=== PATIENT | female | born 1990 | race Caucasian/White ===

== ENCOUNTER 2020-10-06 15:58 | Emergency (ER) | payer OTHER, SELFPAY ==
--- NOTE | 2020-10-06 17:21 | ED.GENADULT ---
HPI - General Adult General Chief complaint: General Medical Stated complaint: sore throat Source: patient Mode of arrival: ambulatory Limitations: no limitations History of Present Illness HPI narrative: 29-year-old female presents with 2 weeks of worsening sore throat. States that she has been using tea, honey, and lidn-eqk-tlynoap remedies and none have been effective. She does not report any ear pain, measured fevers or chills but does report to be tired. Onset (ago): week(s) (2) Severity: moderate Severity scale (1-10): 6 Quality: burning, aching and constant Pain Consistency: constant Relieving factors: none Exacerbating factors: eating Associated symptoms: malaise Treatments prior to arrival: NSAID Related Data Previous Rx's Medication Instructions Recorded penicillin V potassium 500 mg PO TID 10 Days #30 tab 10/06/20 Allergies Allergy/AdvReac Type Severity Reaction Status Date / Time codeine Allergy Unknown Verified 10/06/20 17:29 Review of Systems Review of Systems: Constitutional: No Fever, No Chills ENT/Mouth: No Ear Pain, No Hoarseness, positive sore throat, positive swollen tonsils Eyes: No Eye Pain, No Swelling, No Redness, No Foreign Body Cardiovascular: No Chest Pain, No SOB Respiratory: No Cough, No Dyspnea Gastrointestinal: No Nausea, No Vomiting, No Diarrhea, No abdominal Pain Genitourinary: No Dysuria, No Hematuria Musculoskeletal: positive joint pain, No Myalgias, No Joint Swelling Skin: No Skin lacerations, No rash Neuro: No Weakness, No Numbness, No Paresthesias, No Loss of Consciousness, No Dizziness, No Headache Psych: No Anxiety/Panic, No Depression Heme/Lymph: no easy bruising, no Lymphadenopathy Endocrine: No Polyuria, No Polydipsia Yes all other systems are reviewed and are negative [facility] Past Medical History Attestation statement: The following information was validated with the patient. Source: old records reviewed Medical History Asthma PTSD (post-traumatic stress disorder) Social History Social History Smoked in Last 30 Days: No Use of substances other than those prescribed or required for medical reasons: No Any prior treatment program specific to substance use: No Advance Directives: No Advance Directives Information Provided: No Physical Exam Vital Signs: Vital Signs: Last Vital Signs Temp 99.2 F 10/06/20 17:23 Pulse 93 10/06/20 17:23 Resp 16 10/06/20 17:23 BP 137/77 10/06/20 17:23 Pulse Ox 99 10/06/20 17:23 Body Mass Index 28.6 Appearance: Alert. Oriented X3. Mild distress. Eyes: Pupils equal, round and reactive to light. ENT: Pharynx erythematous with exudates, no cervical lymphadenopathy noted Neck: Normal inspection. Neck supple. CVS: Normal heart rate and rhythm. Pulses normal. Respiratory: No respiratory distress. Breath sounds normal. Abdomen: Soft and nontender. Skin: Skin warm and dry. Normal skin color. Normal skin turgor. Extremities: No lower extremity edema. Neuro: No motor deficit. No sensory deficit. Course Course Course Narrative: 29-year-old female past medical history asthma presents with 2 sore been on by [id number] remedies. Plan of care is to test for strep and COVID. Pharynx erythematous, tonsillar exudates noted bilaterally. Plan of care is to treat with Augmentin. Patient will be discharged home, patient verbalized understanding of and agrees to plan of care. At 7:57 p.m. call out to patient to give negative COVID results. Medical Decision Making Differential Diagnosis Differential Diagnosis: Strep, COVID, viral illness, influenza Medical Records Medical records reviewed: Yes I reviewed the patient's medical records. Lab Data Lab results reviewed: Yes I reviewed the patient's lab results. Labs: Lab Results 10/06/20 Range/Units 17:39 Coronavirus (PCR) NEGATIVE (Negative) Influenza Type A (PCR) NEGATIVE (Negative) Influenza Type B (PCR) NEGATIVE (Negative) RSV RNA Qual (PCR) NEGATIVE (Negative) Discharge Plan Discharge Clinical Impression: Strep pharyngitis, COVID-19 Patient Disposition: Home, Self-Care Instructions: Pharyngitis (ED), COVID-19 (Coronavirus Disease 2019) (ED) Additional Instructions: You were evaluated for sore throat. Your findings are consistent with strep pharyngitis. Please take your antibiotics as directed. Complete the entire course. Please use Tylenol and Motrin as needed for pain management. You were evaluated for symptoms consistent with COVID-19. Please maintain social isolation per State and Federal guidelines. Is your responsibility to maintain these guidelines. Your test results are pending. We will call you with the results. You must treat yourself as if you are positive until your test results come back. Thank you for choosing this emergency department for evaluation. Please follow-up with primary care physician as needed. Return to the emergency department for any new, concerning, or worsening symptoms. Prescriptions: New penicillin V potassium 500 mg tablet 500 mg PO TID 10 Days Qty: 30 RF: 0 Interventions: ED Discharge Assessment Last Done: 10/06/20 18:15 Discharge Date/Time: 10/06/20 18:19
[2020-10-06 17:23] VITALS: BP 137/77; PULSE 93; RESP 16; TEMP 37.3; O2SAT 99; BMI 28.6
[2020-10-06] MEDS: Penicillin V Potassium 250 MG TABLET 500 MG PO (18:00)
[2020-10-06 19:15] LABS: Influenza A PCR NEGATIVE (Negative); Influenza B PCR NEGATIVE (Negative); Resp Syncy Virus RNA Qual PCR NEGATIVE (Negative); SARS COV2 PCR INHOUSE NEGATIVE (Negative)
== END 2020-10-06 18:19 | disposition home or self-care (01) ==
PROVIDERS: Nurse Practitioner Family; Emergency Provider Emergency Medicine Emergency Medical Services
DX: U07.1 COVID-19 (principal); J02.0 Streptococcal pharyngitis; Z79.899 Other long term (current) drug therapy
CPT/HCPCS: 0241U; 36415; 87071; 87147; 87880; 99284

== ENCOUNTER 2020-10-22 17:33 | Emergency (ER) | payer OTHER, SELFPAY ==
[2020-10-22 17:40] VITALS: PULSE 90; RESP 18; TEMP 37.2; O2SAT 100; BMI 28.3
--- NOTE | 2020-10-22 17:51 | ED_ITS ---
HPI - URI/Sore Throat General Chief Complaint: Upper Respiratory Symptoms Stated Complaint: Sore throat Time Seen by Provider: 10/22/20 17:51 Source: patient Mode of arrival: ambulatory Limitations: no limitations History of Present Illness HPI Narrative: Otherwise healthy 29-year-old female who denies significant past medical or surgical history not currently taking medications states she was initially seen here on October 06 for sore throat at that time she had strep test as well as COVID test and started on penicillin states she felt better finished course of 10 day penicillin 6 days ago and 2 days ago she started have sore throat again. She otherwise denies any upper respiratory symptoms no cough or shortness of breath. No dysphagia. She states she had the test however she does not know with the results or of her strep test. Onset (ago): day(s) Consistency: constant Severity: moderate Able to tolerate fluids by mouth: Yes Exacerbating factors: nothing Associated symptoms: denies other symptoms Treatments prior to arrival: none Related Data Previous Rx's Medication Instructions Recorded penicillin V potassium 500 mg PO TID 10 Days #30 tab 10/06/20 amoxicillin-pot clavulanate 1 tab PO Q12H 10 Days #20 tab 10/22/20 [Augmentin] azithromycin [Zithromax Z-Brian] 250 mg PO DAILY 5 Days #6 tab 10/22/20 Allergies Allergy/AdvReac Type Severity Reaction Status Date / Time codeine Allergy Unknown Verified 10/06/20 17:29 Review of Systems Review of Systems: Constitutional: No Weight loss, No Fever, No Chills, No Night Sweats, No Fatigue, No Malaise ENT/Mouth: No Hearing loss, No Ear Pain, No Nasal Congestion, No Sinus Pain, No Hoarseness, + sore throat, No Rhinorrhea, No Swallowing Difficulty Eyes: No Eye Pain, No Swelling, No Redness, No Foreign Body, No Discharge, No Vision Changes Cardiovascular: No Chest Pain, No SOB, No Dyspnea on Exertion, No Orthopnea, No Edema, No Palpitations Respiratory: No Cough, No Sputum, No Wheezing, No Smoke Exposure, No Dyspnea Gastrointestinal: No Nausea, No Vomiting, No Diarrhea, No Constipation, No abdominal Pain, No Hematochezia, No Melena Genitourinary: No Dysuria, No Urinary Frequency, No Hematuria, No Urinary Incontinence, No Urgency, No Flank Pain, No Urinary Flow Changes, No Hesitancy Musculoskeletal: No joint pain, No Myalgias, No Joint Swelling Skin: No Skin Lesions, No rash Neuro: No Weakness, No Numbness, No Paresthesias, No Loss of Consciousness, No Dizziness, No Headache Psych: No Social Issues Heme/Lymph: No Bruising, No Bleeding,No Lymphadenopathy Endocrine: No Polyuria, No Polydipsia, No Temperature Intolerance Yes all other systems are reviewed and are negative [facility] Past Medical History Medical History Asthma PTSD (post-traumatic stress disorder) Social History Social History Alcohol intake: never Smoking Status: Never smoker Use of substances other than those prescribed or required for medical reasons: No Advance Directives: No Advance Directives Information Provided: No Physical Exam Vital Signs: Vital Signs: Last Vital Signs Temp 99.0 F 10/22/20 17:40 Pulse 90 10/22/20 17:40 Resp 18 10/22/20 17:40 Pulse Ox 99 10/22/20 17:59 Body Mass Index 28.3 Reviewed Const: General: cooperative and healthy appearing; No acute distress or intoxicated appearing Nutritional Appearance: average body habitus Orientation/consciousness: patient oriented x3 HENMT: Head: Yes normal to inspection Ears: hearing grossly normal bilaterally, external ears normal, TM's normal bilaterally, TM normal on the right, TM normal on the left and EAC's normal General nose exam: Normal external nose present Face and sinus: Yes normal facial exam Mouth: Normal oral and palatal mucosa present, lip normal, tongue normal, Normal salivary glands and ducts present, oropharynx normal (Posterior pharynx slightly erythematous, without evidence of swelling) and other (Uvula midline. No evidence of peritonsillar abscess. No foul smell.) Eyes: General: appearance normal, both eyes and all related structures Visual Griffith: normal visual griffith by confrontation Neck: Neck: Yes normal visual inspection, No positive Brudzinski's sign, No positive Kernig's sign and No tender Thyroid: Thyroid normal Chest: Chest palpation & inspection: normal inspection of the chest Resp: Effort & Inspection: normal respiratory effort Cardio: Jugular venous distension: no JVD GI: Inspection: Yes normal to inspection Percussion: Yes normal to percussion Auscultation: normal bowel sounds : General: Yes no CVA tenderness Back/Spine/Pelvis: Back: no CVA tenderness Skin: General skin exam: no rashes or lesions noted Neuro: General: patient oriented x3 Extrem: General: Yes normal to inspection Course Course Course Narrative: Previous strep culture shows Streptococcus pyogenes (Grp A) status post 10 days of penicillin defers on retesting will go ahead and treat with Augmentin. Otherwise speaking full clear sentences without evidence of peritonsillar abscess no systemic symptoms. Tolerating p.o. intake well. Will have her follow up for recheck in 7-10 days with her primary care doctor. Discharge Plan Discharge Clinical Impression: Pharyngitis Qualifiers: Pharyngitis/tonsillitis etiology: streptococcus Qualified Code(s): J02.0 - Streptococcal pharyngitis Patient Disposition: Home, Self-Care Instructions: Pharyngitis (ED) Additional Instructions: Salt water gargle Take medication as prescribed Supportive care discussed Return if any concerns or worsening symptoms Follow up with her primary care doctor as discussed Thank you Prescriptions: New azithromycin [Zithromax Z-Brian] 250 mg tablet 250 mg PO DAILY 5 Days Qty: 6 RF: 0 amoxicillin-pot clavulanate [Augmentin] 875-125 mg tablet 1 tab PO Q12H 10 Days Qty: 20 RF: 0 No Action penicillin V potassium 500 mg tablet 500 mg PO TID 10 Days Qty: 30 RF: 0 Referrals: Physician,Unknown [Primary Care Provider] - 1 week Interventions: ED Discharge Assessment Last Done: 10/22/20 18:12 Discharge Date/Time: 10/22/20 18:13
[2020-10-22 17:59] VITALS: O2SAT 99
== END 2020-10-22 18:13 | disposition home or self-care (01) ==
PROVIDERS: Emergency Provider Emergency Medicine
DX: J02.0 Streptococcal pharyngitis (principal)
CPT/HCPCS: 99283; 99284

== ENCOUNTER 2023-05-31 10:19 | Emergency (ER) | payer OTHER, SELFPAY ==
--- NOTE | ~2023-05-31 | XR_ITS ---
EXAMINATION: XR LUMBOSACRAL SPINE CLINICAL INFORMATION: Pain COMPARISON: None available. TECHNIQUE: Three views of the lumbosacral spine. FINDINGS: No fracture or destructive process or alignment abnormality. Vertebral body heights preserved XR/XR lumbar spine 2-3V IMPRESSION: Unremarkable examination.
--- NOTE | ~2023-05-31 | XR_ITS ---
EXAMINATION: XR HIP, RIGHT CLINICAL INFORMATION: Pain COMPARISON: None available. TECHNIQUE: Two views of the right hip. FINDINGS: No fracture, dislocation or destructive process or alignment abnormality. XR/XR hip RT w [id number] IMPRESSION: Normal right hip.
[2023-05-31 10:45] VITALS: BP 165/96; PULSE 81; RESP 18; TEMP 37; O2SAT 99; BMI 28.9
[2023-05-31 13:52] VITALS: BP 121/77; PULSE 77; RESP 14; O2SAT 98
[2023-05-31] MEDS: Ketorolac Tromethamine 30 MG/ML VIAL IM (14:16)
--- NOTE | 2023-05-31 14:23 | PC.NURSE ---
pt sitting upright in bed. calm, coop. 8/10 back pain. aox4. calm, coop.
--- NOTE | 2023-05-31 15:04 | ED.BACK ---
HPI - Back Pain/Injury General Chief Complaint: Back Pain/Injury Stated Complaint: pain in hip Time Seen by Provider: 05/31/23 12:23 Source: patient and RN notes reviewed Mode of arrival: ambulatory Limitations: no limitations History of Present Illness HPI Narrative: This is a 32-year-old female presenting to the emergency department with complaints of right hip and low back pain for the last several days. Patient reports that she has been starting up yoga and states that while she was doing a specific position with a pillow she felt something unusual in her low back. She states that she has had worsening pain since this incident. She states that the pain is in the right lower aspect of her low back which radiates down her right leg. She states that her pain exacerbates with lifting her right leg. She denies any chest pain, shortness of breath. No urinary or bowel incontinence. No saddle anesthesia. No fevers or chills. No urinary symptoms. She states that while she was multiple years ago she had some back trouble however states that since then she has not had any problems with her back. She tried calling her primary care physician who is unable to see her today. No other complaints or concerns at this time. MD elicited complaint: back pain Pertinent past history: prior back pain Timing: constant and progressively worsening Quality: aching Location: lumbar spine and right lower back Radiation: right upper leg Exacerbating factors: movement Relieving factors: immobilization Associated symptoms: denies other symptoms Work related injury: No Related Data Previous Rx's Medication Instructions Recorded penicillin V potassium 500 mg 500 mg PO TID 10 days #30 tabs 10/06/20 tablet amoxicillin 875 mg-potassium 1 tab PO Q12H 10 days #20 tabs 10/22/20 clavulanate 125 mg tablet (Augmentin) azithromycin 250 mg tablet 250 mg PO DAILY 5 days #6 tabs 10/22/20 (Zithromax Z-Brian) acetaminophen 325 mg capsule 650 mg (2 x 325 mg) PO Q6H PRN 05/31/23 (Tylenol) pain #30 caps cyclobenzaprine 5 mg tablet 5 mg PO TID PRN muscle spasm #14 05/31/23 tabs lidocaine 5 % topical patch 1 patch topical DAILY #30 ea 05/31/23 (Lidoderm) prednisone 20 mg tablet 40 mg (2 x 20 mg) PO DAILY 5 days 05/31/23 #10 tabs Allergies Allergy/AdvReac Type Severity Reaction Status Date / Time codeine Allergy Unknown Verified 05/31/23 10:48 Review of Systems Review of Systems: Yes all other systems are reviewed and are negative Constitutional: Constitutional: Reports as per [facility] Past Medical History Attestation statement: The following information was validated with the patient. Medical History PTSD (post-traumatic stress disorder) Asthma Social History Social History Alcohol intake: never Smoked in Last 30 Days: No Use of substances other than those prescribed or required for medical reasons: No Advance Directives: No Advance Directives Information Provided: No Physical Exam Vital Signs: Vital Signs: Last Vital Signs Temp 98.6 F 05/31/23 10:45 Pulse 77 05/31/23 13:52 Resp 14 05/31/23 13:52 BP 121/77 05/31/23 13:52 Pulse Ox 98 05/31/23 13:52 O2 Del Method Room Air 05/31/23 13:52 BMI result Body Mass Index 28.9 Const: General: cooperative, comfortable and no acute distress Orientation/consciousness: patient oriented x3 Limitations: no limitations HEENT: Head: Yes normal to inspection, Yes normocephalic and Yes atraumatic Ears: hearing grossly normal bilaterally General nose exam: Normal external nose present Face and sinus: Yes normal facial exam Mouth: Normal oral and palatal mucosa present, oropharynx normal and moist mucous membranes Throat: Yes posterior oropharynx normal Eyes: General: appearance normal, both eyes and all related structures Eyelids: Yes eyelids normal Conjunctivae: conjunctivae normal Sclerae: sclerae normal Pupils: Equal, round and reactive pupils present EOM: EOMs intact bilaterally Neck: Neck: Yes normal visual inspection, Yes full ROM and Yes no lymphadenopathy Lymphatic: no lymphadenopathy noted Chest: Chest palpation & inspection: normal inspection of the chest Resp: Effort & Inspection: normal respiratory effort and able to speak in complete sentences Auscultation: clear to auscultation bilaterally, no crackles, no rales, no rhonchi and no wheezes Cardio: Rate: regular rate Rhythm: regular rhythm Heart sounds: S1 normal heart sound present and S2 normal heart sound present GI: Inspection: Yes normal to inspection Back/Spine/Pelvis: Other: Right lower paraspinous muscle tenderness palpation, positive straight leg raise on the right. No midline lumbar spine tenderness palpation. Skin: General skin exam: no rashes or lesions noted Trauma: no lacerations or abrasions Wounds: no wounds Neuro: General: patient oriented x3 and moves all extremities Cranial nerves: Yes Equal, round and reactive pupils present Extrem: General: Yes normal to inspection Right upper extremity: normal to inspection Left upper extremity: normal to inspection Right lower extremity: normal to inspection Left lower extremity: normal to inspection Course Reevaluation(s) Reevaluation #1: X-rays unremarkable, symptoms consistent with sciatica and lumbar spasm, will treat with prednisone, muscle relaxants, Lidoderm patches. Advised follow-up with primary care physician for further evaluation treatment. Given return precautions. Patient stable for discharge. Time: 16:00 Medications Administered Discontinued Medications Generic Name Dose Route Start Last Admin Trade Name Freq PRN Reason Stop Dose Admin Ketorolac Tromethamine 30 mg 05/31/23 14:04 05/31/23 14:16 Ketorolac Tromethamine 30 Mg/Ml Vial IM 05/31/23 14:05 30 mg ONCE ONE Administration Medical Decision Making Medical Decision Making [facility] Narrative: This is a [id number] presenting to the emergency department with a complaint of right hip, right low back pain x several days. Had injury during yoga class, now progressively worsening. On arrival, patient mildly hypertensive at 165/90, likely due to pain, patient is otherwise nontoxic. On examination, patient has tenderness to palpation overlying SI joint and right lumbar paraspinous muscles. This patient presents with back pain most consistent with SI joint pain/sciatica Differential diagnoses includes lumbago versus musculoskeletal spasm / strain versus sciatica. No back pain red flags on history or physical. Presentation not consistent with malignancy (lack of history of malignancy, lack of B symptoms), fracture (no trauma, no bony tenderness to palpation), cauda equina syndrome (no bowel or urinary incontinence/retention, no saddle anesthesia, no distal weakness), pyelonephritis (afebrile, no CVAT, no urinary symptoms). Given the clinical picture, no indication for imaging at this time. Differential Diagnosis Differential Diagnoses: The differential diagnosis associated with the presentation includes See above Radiology Impression Discussion of test interpretation with radiology: I have reviewed the radiologist's reading. Discharge Plan Discharge Clinical Impression: Sciatica, Back pain Patient Disposition: Home, Self-Care Instructions: Sciatica (ED), Acute Low Back Pain (ED), Back Pain (ED) Additional Instructions: Please take prescribed medication as directed. Please be advised that Flexeril as a muscle relaxant and can cause drowsiness, do not drink alcohol or drive while taking this medication. Prednisone will help reduce inflammation in your back. Do not take anti-inflammatory medications like ibuprofen or naproxen while taking this medication as this increases your chances of bleeding. Take Tylenol as needed for pain. Gentle stretching, massage, and he can also help with your symptoms. If any new or worsening symptoms occur, including but not limited to shortness of breath, chest pain, please return for re-evaluation. Prescriptions: New prednisone 20 mg tablet 40 mg PO DAILY 5 Days Qty: 10 0RF cyclobenzaprine 5 mg tablet 5 mg PO TID PRN (Reason: muscle spasm) Qty: 14 0RF acetaminophen [Tylenol] 325 mg capsule 650 mg PO Q6H PRN (Reason: pain) Qty: 30 0RF lidocaine [Lidoderm] 5 % adhesive patch,medicated 1 patch topical DAILY Qty: 30 0RF Rx Instructions: leave on most painful area for up to 12 hrs No Action penicillin V potassium 500 mg tablet 500 mg PO TID 10 Days Qty: 30 0RF azithromycin [Zithromax Z-Rbian] 250 mg tablet 250 mg PO DAILY 5 Days Qty: 6 0RF Rx Instructions: Per label Z-Brian instructions amoxicillin-pot clavulanate [Augmentin] 875-125 mg tablet 1 tab PO Q12H 10 Days Qty: 20 0RF
[2023-05-31 16:11] VITALS: BP 122/77; PULSE 80; RESP 16; TEMP 36.6; O2SAT 99
== END 2023-05-31 16:14 | disposition home or self-care (01) ==
PROVIDERS: Emergency Provider Emergency Medicine
DX: M54.41 Lumbago with sciatica, right side (principal); M25.551 Pain in right hip
CPT/HCPCS: 72100; 73502; 96372; 99284; J1885